=== PATIENT | female | born 1940 | race Two or more races ===

== ENCOUNTER 2019-11-07 21:42 | Emergency (ER) | payer MEDICARE, OTHER ==
[~2019-11-07] VITALS: Ht 157.5 cm; Wt 58.5 kg
--- NOTE | 2019-11-07 21:56 | NUR ---
pt bibra from home s/p glf. pt is awake & alert, speaks very little paraguayan, but is able to follow simple commands. no s/s of acute distress or sob noted. vs stable. waiting for family member to arrive to er. waiting to be seen by md at bedside. will continue to monitor pt's condition and safety.
--- NOTE | 2019-11-07 22:10 | NUR ---
pt being seen by md at bedside.
--- NOTE | 2019-11-07 22:19 | NUR ---
CXR BEING DONE AT BEDSIDE
[2019-11-07] MEDS ORDERED: HYDROMORPHONE 1 MG/1 ML DISP.SYRIN ONE (22:23)
[2019-11-07] MEDS ORDERED: ONDANSETRON 4 MG TAB.RAPDIS ONE (22:24)
[2019-11-07] MEDS ORDERED: HYDROMORPHONE 1 MG/1 ML DISP.SYRIN IM ONE (22:30)
[2019-11-07] MEDS ORDERED: ONDANSETRON 4 MG TAB.RAPDIS SL ONE (22:30)
--- NOTE | 2019-11-07 23:13 | NUR ---
Patient discharged to home in stable condition. Written and verbal after care instructions given. Patient verbalizes understanding of instruction. Patient left facility via wheelchair, accompanied by staff member, waiting for daughter to bring car out front of ER entrance. No s/s of acute distress or sob noted. VS stable. No iv on pt. pt transferred to car safely.
[2019-11-07 23:14] VITALS: BP 139/76
== END 2019-11-07 23:14 | disposition home or self-care (01) ==
LOC: ER 21:43
DX: S20.212A Contusion of left front wall of thorax, initial encounter (principal); F03.90 Unspecified dementia, unspecified severity, without behavioral disturbance, psychotic disturbance, mood disturbance, and anxiety; Z98.890 Other specified postprocedural states; W18.39XA Other fall on same level, initial encounter; Y93.89 Activity, other specified; Y92.89 Other specified places as the place of occurrence of the external cause; Y99.8 Other external cause status
CPT/HCPCS: 71045; 96372; 99283; J1170; Q0162

== ENCOUNTER 2023-04-02 20:01 | Inpatient (IN) | payer MEDICARE, OTHER ==
[~2023-04-02] VITALS: Ht 157.5 cm; Wt 57.2 kg
--- NOTE | 2023-04-02 20:30 | NUR ---
JOSE ANGELRA 89 FROM HOME FOR MORE CONFUSED THAN NORMAL FOR PAST FEW DAYS BASE LINE DEMENTIA AND CONFUSED. PATIENT IS AOX0. AWAKE, WITHDRAWS TO PAINFUL STIMULI. PATIENT LOOKS PALE. ATTACHED TO MONITOR. VITALS CHECKED.
[2023-04-02] MEDS ORDERED: IV NS 0.9% 1,000 ML BAG IV ONE ×2 (21:00→22:30)
--- NOTE | 2023-04-02 21:11 | NUR ---
XRAY DONE AT BEDSIDE
--- NOTE | 2023-04-02 21:11 | NUR ---
IV CAREN G18 INSERTED ON RIGHT UPPER ARM. BLOOD DRAWN AND SENT TO LAB
--- NOTE | 2023-04-02 21:11 | NUR ---
URINE SPECIMEN SENT TO LAB
--- NOTE | 2023-04-02 21:12 | NUR ---
DOMINICK-DAUGHTER [phone]
[2023-04-02 21:25] LABS: BASOPHILS % (AUTO) 0.4 % (0.0-2.0); HEMATOCRIT 43 % (33-45); LYMPHOCYTES # (AUTO) 1.2 K/uL (0.8-4.8); LYMPHOCYTES % (AUTO) 10.7 % (20.0-44.0); MEAN CORPUSCULAR HGB CONC 31 g/dl (31.0-36.0); MEAN CORPUSCULAR VOLUME 79 fL (82-100); MONOCYTES # (AUTO) 0.7 K/uL (0.1-1.30); MONOCYTES % (AUTO) 5.8 % (2.0-12.0); NEUTROPHILS # (AUTO) 9.6 K/uL (1.8-8.9); NEUTROPHILS % (AUTO) 83.1 % (43.0-81.0); PLATELET COUNT (AUTO) 309 K/uL (150-450); RED BLOOD CELL COUNT(AUTO) 5.37 MIL/uL (4.0-5.2); WHITE BLOOD COUNT (AUTO) 11.5 K/uL (4.3-11.0)
[2023-04-02 21:32] LABS: BILIRUBIN,URINE NEGATIVE (NEGATIVE); COLOR,URINE YELLOW (YELLOW); LEUKOCYTE ESTERASE ,URINE NEGATIVE (NEGATIVE); NITRITE, URINE NEGATIVE (NEGATIVE); PH,URINE 5.5 (5.0-8.0); PROTEIN,URINE 2+ mg/dl (NEGATIVE); UGLUCOSE 2+ mg/dL (NEGATIVE)
[2023-04-02 21:37] LABS: BACTERIA,URINE None seen /HPF (None Seen); WBC,URINE 0-2 /HPF (0-3)
[2023-04-02 21:53] LABS: BAND % (MANUAL) 1 % (0.0-5.0); LYMPHOCYTES % (MANUAL) 12 % (16-48); MONOCYTES % (MANUAL) 6 % (0-11.0); NEUTROPHILS % (MANUAL) 81 (42-76)
[2023-04-02] MEDS ORDERED: PIPERACILLIN /TAZOBACTAM 3.375 G in IV D5W 50 ML IV ONE (22:00)
[2023-04-02] MEDS ORDERED: VANCOMYCIN 1 GM in IV D5W 250 ML IV ONE (22:00)
--- NOTE | 2023-04-02 22:00 | NUR ---
CRITICAL RESULT REPORTED BY LAB RUSTY. LACTIC ACID 5.1. TROP 427 DR ANDRES MADE AWARE.
--- NOTE | 2023-04-02 22:00 | NUR ---
TROPONIN 427, MD AWARE
[2023-04-02] MEDS ORDERED: PIPERACI/TAZO 3.375GM/D5W 50ML PB IV ONE (22:24)
[2023-04-02] MEDS ORDERED: VANCOMYCIN 1 GM /D5W 250 ML PB IV ONE (22:24)
--- NOTE | 2023-04-02 22:46 | NUR ---
AFTER THOROUGH DISCUSSION OF DR MARTINEZ TO PATIENT'S DAUGHTER. DAUGHTER DECIDED TO SIGN POLST FOR DNR. DR MARTINEZ ALSO SIGNED THE DNR FORM. FORM ATTACHED TO CHART
[2023-04-02 22:59] LABS: ALANINE AMINOTRANSFERASE 38 U/L (12-78); ALBUMIN 2.9 g/dL (3.4-5.0); ALKALINE PHOSPHATASE 147 U/L (46-116); ASPARTATE AMINOTRANSFERASE 34 U/L (15-37); BILIRUBIN,DIRECT 0.1 mg/dL (0.0-0.2); BILIRUBIN,TOTAL 0.4 mg/dL (0.2-1.0); CARBON DIOXIDE 18 mmol/L (21-32); CHLORIDE 103 mmol/L (98-107); CREATININE 1.1 mg/dL (0.6-1.3); POTASSIUM 4.8 mmol/L (3.5-5.1); SODIUM SERUM 138 mmol/L (136-145); TOTAL PROTEIN, SERUM 7.5 g/dL (6.4-8.2); UREA NITROGEN, BLOOD 25 mg/dL (7-18)
[2023-04-02 23:00] LABS: ALCOHOL, BLOOD < 3 mg/dL (0-10); GLUCOSE 356 mg/dL (74-106)
--- NOTE | 2023-04-02 23:03 | NUR ---
DAUGHTER DOMINICK . CALL FOR UPDATES
[2023-04-02] MEDS ORDERED: CT SWABBABLE VALVE TRANS SET 1 EA INFUS.SET MC ONE (23:27)
[2023-04-02] MEDS ORDERED: IV NS 0.9% 250 ML IV ONE (23:27)
[2023-04-02] MEDS ORDERED: IOHEXOL-300 100 ML VIAL IV ONE (23:27)
[2023-04-03 00:03] LABS: SITE, VBG Left Radial; VBG COHb 0.3 %; VBG MetHb 0.3 %; VENT MODE, VBG Room Air
--- NOTE | 2023-04-03 00:22 | NUR ---
BROUGHT TO CT DEPT
[2023-04-03] MEDS ORDERED: IV NS 0.9% 250 ML IV ONE (00:25)
[2023-04-03] MEDS ORDERED: IOHEXOL-350 100 ML VIAL IV ONE (00:25)
[2023-04-03] MEDS ORDERED: CT SWABBABLE VALVE TRANS SET 1 EA INFUS.SET MC ONE (00:25)
--- NOTE | 2023-04-03 00:37 | NUR ---
CAME BACK FROM CT DEPT
--- NOTE | 2023-04-03 00:56 | NUR ---
CRITICAL RESULT REPORTED BY CORIE. PT LACTIC ACID IS 6.2. AWAITS MD ORDER
[2023-04-03] MEDS ORDERED: DEXTROSE 50%-WATER 50 ML DISP.SYRIN IV PRN (01:00)
[2023-04-03] MEDS ORDERED: ONDANSETRON HCL/PF 4 MG/2 ML VIAL IVP PRN (01:00)
[2023-04-03] MEDS ORDERED: ACETAMINOPHEN 650 MG/SUPP.RECT RC PRN (01:00)
[2023-04-03] MEDS ORDERED: Z GUARD REMEDY 4 OZ OINT TP PRN (01:00)
[2023-04-03] MEDS: BLOOD SUGAR DIAGNOSTIC 1 EACH STRIP IN SCH ×6 (02:00→20:41)
--- NOTE | 2023-04-03 02:04 | NUR ---
BS CHECKED 141mg/dl
--- NOTE | 2023-04-03 02:41 | NUR ---
ROOM 106
--- NOTE | 2023-04-03 03:01 | NUR ---
REPORT GIVEN TO NICOLAS CROW
--- NOTE | 2023-04-03 03:15 | NUR ---
RN ADMITTING NOTE Received patient from ER via rney accompanied by Shawna VALENZUELA and EMT Neel, pt AO x 0, in no acute distress, saturation at 92% on room air, SR on the monitor, HR is 100. IV line at RFA 22g patent flushing well, started IV fluid of NS at 100 ml/hr per MD order. Comprehensive assessment done, pressure wound noted at sacrum/coccyx and R heel. Referred for wound consult. Safety measures in place, bed is locked and at lowest position, HOB elevated, call light within reach of patient. Will monitor and carry out MD orders.
--- NOTE | 2023-04-03 03:20 | NUR ---
TRANSFERRED TO [facility] TELE VIA ACLS PROTOCOL
[2023-04-03] MEDS: IV NS 0.9% 1,000 ML IV PRN ×2 (03:46→18:35)
[2023-04-03] MEDS: ENOXAPARIN SODIUM 60 MG/0.6 ML DISP.SYRIN SQ SCH ×2 (03:56→20:07)
[2023-04-03 04:00] VITALS: BP 98/51
[2023-04-03 06:00] LABS: CALCIUM, SERUM 9.1 mg/dL (8.5-10.1); CARBON DIOXIDE 20 mmol/L (21-32); CHLORIDE 109 mmol/L (98-107); CREATININE 0.6 mg/dL (0.6-1.3); GLUCOSE 126 mg/dL (74-106); POTASSIUM 3.8 mmol/L (3.5-5.1); SODIUM SERUM 140 mmol/L (136-145); UREA NITROGEN, BLOOD 16 mg/dL (7-18)
--- NOTE | 2023-04-03 07:26 | NUR ---
RN OPENING NOTE Received report from TRISTIN VALENZUELA, patient in bed sleeping, easily to aroused, pt AO x 0, in no acute distress, on 2lpm 02 via NC,tolerating well. SR on the monitor, HR is 98-99. IV line at RFA 22g patent flushing well, on IV fluid of NS at 100 ml/hr. Safety measures in place, bed is locked and at lowest position, HOB elevated, call light within reach of patient. Plan of care continue.
[2023-04-03 08:00] VITALS: BP 96/58
[2023-04-03] MEDS: PANTOPRAZOLE 40 MG VIAL IV SCH (08:06)
[2023-04-03] MEDS: CEFEPIME 2 GM in IV D5W 100 ML IV SCH ×2 (08:16→20:07)
[2023-04-03] MEDS ORDERED: CEFEPIME 1 GM in IV D5W 50 ML IV SCH (09:00)
[2023-04-03] MEDS ORDERED: ASPIRIN 81 MG TAB.CHEW PO SCH (09:00)
[2023-04-03] MEDS ORDERED: RISP0.2515 PO (09:37)
[2023-04-03] MEDS ORDERED: LORA-258 PO (09:37)
[2023-04-03] MEDS ORDERED: CHOL100043 PO (09:37)
[2023-04-03] MEDS ORDERED: DORZ10DR11 LEFTEYE (09:37)
[2023-04-03] MEDS ORDERED: CALC500T53 PO (09:37)
[2023-04-03] MEDS ORDERED: DICL100G34 TD (09:37)
[2023-04-03] MEDS ORDERED: MYRBETRIQ PO (09:37)
[2023-04-03] MEDS ORDERED: LATA2.5D15 EACHEYE (09:37)
--- NOTE | 2023-04-03 10:45 | NUR ---
RN OPENING NOTE RECEIVED REPORT FROM FELA MAYERS,NICOLAS, PATIENT IN BED, ASLEEP, NO ACUTE DISTRESS, O2 SAT 96% ON 2L VIA NC, IV ACCESS RFA 22g PATENT, FLUSHING WELL, RUNNING IV NS at 100 ml/hr. PT IS NPO, D/T FAILED SWAL EVAL. SAFETY MEASURES IMPLEMENTED, BED LOCKED AND IN LOWEST POSITION, SIDE RAILS UP, CALL LITE WITHIN REACH, WILL CONTINUE TO MONITOR.
[2023-04-03 11:06] LABS: CALCIUM, SERUM 8.9 mg/dL (8.5-10.1); CREATININE 0.7 mg/dL (0.6-1.3)
--- NOTE | 2023-04-03 11:11 | NUR ---
GAVE REPORT TO KONSTANTIN Dexter RN FOR KRUPA.
--- NOTE | 2023-04-03 11:16 | NUR ---
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 DR VALLE AND DR MARIE CALLED FOR SURGICAL AND DPM CONSULTS. DR MARIE EXAMINED PT. DISCUSSED SKIN PROTECTION WITH NURSING STAFF. MD IN AGREEMENT WITH PLAN OF CARE. FIRST STEP LOW AIRLOSS MATTRESS IS ON ORDER.
[2023-04-03 11:33] LABS: BASOPHILS % (AUTO) 0.4 % (0.0-2.0); EOSINOPHILS % (AUTO) 0.1 % (0.0-6.0); HEMATOCRIT 36 % (33-45); HEMOGLOBIN 11.2 g/dL (11.5-14.8); LYMPHOCYTES # (AUTO) 2.2 K/uL (0.8-4.8); LYMPHOCYTES % (AUTO) 27.1 % (20.0-44.0); MEAN CORPUSCULAR HGB CONC 31 g/dl (31.0-36.0); MEAN CORPUSCULAR VOLUME 79 fL (82-100); MONOCYTES # (AUTO) 0.9 K/uL (0.1-1.30); MONOCYTES % (AUTO) 10.4 % (2.0-12.0); NEUTROPHILS # (AUTO) 5.1 K/uL (1.8-8.9); PLATELET COUNT (AUTO) 242 K/uL (150-450); RED BLOOD CELL COUNT(AUTO) 4.59 MIL/uL (4.0-5.2); WHITE BLOOD COUNT (AUTO) 8.2 K/uL (4.3-11.0)
[2023-04-03 12:00] VITALS: BP 101/60
[2023-04-03] MEDS: THERAHONEY GEL 1.5 OZ TUBE TP SCH (12:17)
[2023-04-03 16:00] VITALS: BP 107/60
--- NOTE | 2023-04-03 19:09 | NUR ---
RN OPENING NOTE PATIENT IN BED, ASLEEP, NO ACUTE DISTRESS, O2 SAT 96% ON 2L VIA NC, IV ACCESS RFA 22g PATENT, FLUSHING WELL, RUNNING IV NS at 100 ml/hr. PT IS NPO, D/T FAILED SWAL EVAL. WOUND CARE PROVIDED, AIR MATTRESS IN USE, SAFETY MEASURES IMPLEMENTED, BED LOCKED AND IN LOWEST POSITION, SIDE RAILS UP, CALL LITE WITHIN REACH, WILL CONTINUE TO MONITOR.
--- NOTE | 2023-04-03 19:30 | NUR ---
RN OPENING NOTE RECEIVED PTS IN BED ASLEEP, NO SOB NO ACUTE DISTRESS,ON O2 2 LITERS VIA NC O2 SAT 96%, IV ACCESS RFA 22g PATENT, FLUSHING WELL, RUNNING IV NS at 100 ml/hr. PT IS NPO, STATUS , DUE MEDS GIVEN ORDERED NO ASE NOTED ,V/S STABLE AFEBRILE .ON TELE SR -ST ON THE MONITOR , SAFETY MEASURES IMPLEMENTED, BED LOCKED AND IN LOWEST POSITION, SIDE RAILS UP, CALL LITE WITHIN REACH, WILL CONTINUE TO MONITOR.
[2023-04-03] MEDS: INSULIN REGULAR, HUMAN 100 UNIT/ML 3 ML VIAL SQ PRN (20:43)
--- NOTE | 2023-04-03 20:46 | NUR ---
LABORATORY GENETICIST NOTES BLOOD SUGAR AT 9PM IS 162MG/DL 3 UNITS OF REGULAR INSULIN GIVEN PER SLIDING SCALE PTS ON IV FLUIDS
[2023-04-03 20:53] VITALS: BP 127/68
--- NOTE | 2023-04-03 23:40 | NUR ---
RN NOTE RECEIVED PATIENT FROM NICOLAS LAU. PATIENT RESTING COMFORTABLY IN BED. WILL CONTINUE TO MONITOR PATIENT.
[2023-04-04] VITALS: BP 122/69
--- NOTE | 2023-04-04 00:02 | NUR ---
director telemetry notes Report given to Yuri Ruiz for continuity of care.
[2023-04-04] MEDS: BLOOD SUGAR DIAGNOSTIC 1 EACH STRIP IN SCH ×6 (00:17→21:49)
[2023-04-04] MEDS: INSULIN REGULAR, HUMAN 100 UNIT/ML 3 ML VIAL SQ PRN ×5 (00:17→21:54)
[2023-04-04 04:55] VITALS: BP 117/70
[2023-04-04] MEDS: IV NS 0.9% 1,000 ML IV PRN ×2 (05:26→16:05)
[2023-04-04 06:24] LABS: BASOPHILS # (AUTO) 0.1 K/uL (0.0-0.2); BASOPHILS % (AUTO) 1.1 % (0.0-2.0); EOSINOPHILS % (AUTO) 1.3 % (0.0-6.0); HEMATOCRIT 32 % (33-45); LYMPHOCYTES % (AUTO) 26.9 % (20.0-44.0); MEAN CORPUSCULAR HGB CONC 32 g/dl (31.0-36.0); MEAN CORPUSCULAR VOLUME 77 fL (82-100); MONOCYTES # (AUTO) 0.6 K/uL (0.1-1.30); MONOCYTES % (AUTO) 8.4 % (2.0-12.0); NEUTROPHILS # (AUTO) 4.6 K/uL (1.8-8.9); NEUTROPHILS % (AUTO) 62.3 % (43.0-81.0); PLATELET COUNT (AUTO) 224 K/uL (150-450); RED BLOOD CELL COUNT(AUTO) 4.09 MIL/uL (4.0-5.2); WHITE BLOOD COUNT (AUTO) 7.4 K/uL (4.3-11.0)
--- NOTE | 2023-04-04 06:34 | NUR ---
RN CLOSING NOTE PATIENT ASLEEP IN BED. NON-VERBAL. NO S/S OF DISTRESS, BREATHING WITHOUT DIFFICULTY ON 2L NC. RFA #20 INTACT AND PATENT W/ NS 100ML/HR. TELE SR 94. SAFETY MEASURES IN PLACE: BED LOCKED AND AT LOWEST POSITION, RAILS UP X2, CALL CANO WITHIN REACH. WILL ENDORSE TO NEXT SHIFT FOR KRUPA.
[2023-04-04 06:37] LABS: MAGNESIUM 1.9 mg/dL (1.8-2.4); PHOSPHORUS 2.6 mg/dL (2.5-4.9)
--- NOTE | 2023-04-04 07:00 | NUR ---
DRAUGHTSMAN OPENING NOTES: RECEIVED PT IN BED ASLEEP, EASILY AROUSED WITH STIMULI. PT OPENED HER EYES WHEN CALLED BY HER NAME.NO SOB OR CARDIAC DISTRESS NOTED. ON O2 INHALATION @2LPM VIA NC AND SATURATION INS 98-100%. ON ARC CUTTER PLASMA ARC WITH CURRENT READING OF SINUS RHYTHM @77BPM. IV ACCESS ON RFA GAUGE 20 PATENT, INTAACT AND INFUSING NS 1L @ 100ML/HR. SAFETY MEASURES MAINTAINED, BED LOCKED AND IN LOWEST POSITION, SIDERAILS UP X 3. MAINTAINED HOB ON SEMI TO HIGH FOWLERS POSITION. WILL MONITOR PT ACCORDINGLY.
[2023-04-04 08:00] VITALS: BP 122/62
[2023-04-04] MEDS: CEFEPIME 2 GM in IV D5W 100 ML IV SCH ×2 (08:11→21:41)
[2023-04-04] MEDS: PANTOPRAZOLE 40 MG VIAL IV SCH (08:11)
[2023-04-04] MEDS: THERAHONEY GEL 1.5 OZ TUBE TP SCH ×2 (08:12→16:54)
[2023-04-04] MEDS: ENOXAPARIN SODIUM 60 MG/0.6 ML DISP.SYRIN SQ SCH ×2 (08:16→21:53)
[2023-04-04 08:59] LABS: CREATININE 0.6 mg/dL (0.6-1.3); POTASSIUM 3.8 mmol/L (3.5-5.1)
[2023-04-04 09:14] LABS: THYROID STIMULATING HORMONE 4.753 uIU/mL (0.358-3.74)
--- NOTE | 2023-04-04 11:14 | NUR ---
RN NOTES: PATIENT PASSED THE BEDSIDE NURSING SWALLOW EVAL, PT IS MORE AWAKE AND DAUGHTER AT BED SIDE. INFORMED DR MARTIN AND ORDERED CHANGE DIET TO PIERO GABRIEL TELE. ORDERS NOTED AND CARRIED OUT.
--- NOTE | 2023-04-04 11:30 | NUR ---
RN NOTES: SEEN BY DR WEEMS, WOUND EVAL DONE. WOUND CARE TREATMENT DONE.FAMILY AT BEDSIDE. PT HAD BM AND BED BATH DONE.
[2023-04-04 12:00] VITALS: BP 122/62
[2023-04-04 16:00] VITALS: BP 117/71
--- NOTE | 2023-04-04 18:00 | NUR ---
RN NOTES: PATIENT ABLE TO EAT DINNER 75% PUREED DIET C/O HER DAUGHTER.
--- NOTE | 2023-04-04 18:45 | NUR ---
CHEMICAL MAKER CLOSING NOTES: PATIENT ASLEEP EASILY AROUSED WITH STIMULI( CALLING HER BY HER NAME) NO SOB OR CARDIAC DISTRESS NOTED. ON O2 INHALATION AT 2LPM VIA NC AND TOLERATING WELL SATURATING 96%. PER DAUGHTER PATIENT IS MORE AWAKE/RESPONSIVE TODAY. IV ACCESS ON RFA GAUGE 20 PATENT, INTACT AND INFUSING NS1L @ 100ML/HR.SAFETY MEASURES MAINTAINED: BED LOCKED AND IN LOWEST POSITION, SIDE RAILS UP X 3. CALL LIGHT AND BED SIDE TABLE IN EASY REACH. WILL ENDORSE TO MANAGER PHARMACY NURSE FOR CONTINUITY OF CARE.
--- NOTE | 2023-04-04 19:00 | NUR ---
log deck tender opening note PT resting in bed, awake, A&O x1, breathing even and unlabored, on o2 via NC, peripheral IV flushing well, all safety measures in place, will continue to monitor
[2023-04-04 20:00] VITALS: BP 120/54
--- NOTE | 2023-04-04 21:54 | NUR ---
IV ABX ADMINISTRATION IV peripheral line RFA intact. Maxipime IV given.
[2023-04-05] VITALS: BP 120/54
[2023-04-05] MEDS: INSULIN REGULAR, HUMAN 100 UNIT/ML 3 ML VIAL SQ PRN ×2 (01:26→05:39)
[2023-04-05] MEDS: BLOOD SUGAR DIAGNOSTIC 1 EACH STRIP IN SCH ×4 (01:26→12:41)
[2023-04-05] MEDS: IV NS 0.9% 1,000 ML IV PRN (02:46)
[2023-04-05 04:00] VITALS: BP 130/68
--- NOTE | 2023-04-05 06:23 | NUR ---
SUPERVISOR VACUUM METALIZING opening note PT resting in bed, asleep, easy to arouse, breathing even and unlabored Addendum: 04/05/23 at 06 by ROBERTO HANNA LVN cont. note. on o2 via NC, RFA 20G flushing well, NS 100cc/ hr tolerating well, 0 s/s of pain noted, skin warm and dry to touch, NAD noted at this time, all safety measures are in place, call light with in reach, will continue to monitor Addendum: 04/05/23 at 06 by ROBERTO HANNA LVN addendum time- [id number] Addendum: 04/05/23 at 0629 by ROBERTO HANNA LVN closing note
[2023-04-05 06:27] LABS: BASOPHILS # (AUTO) 0.1 K/uL (0.0-0.2); BASOPHILS % (AUTO) 1.4 % (0.0-2.0); EOSINOPHILS % (AUTO) 2.9 % (0.0-6.0); HEMATOCRIT 30 % (33-45); HEMOGLOBIN 9.4 g/dL (11.5-14.8); LYMPHOCYTES # (AUTO) 1.6 K/uL (0.8-4.8); LYMPHOCYTES % (AUTO) 27.8 % (20.0-44.0); MEAN CORPUSCULAR HGB CONC 32 g/dl (31.0-36.0); MEAN CORPUSCULAR VOLUME 78 fL (82-100); MONOCYTES # (AUTO) 0.5 K/uL (0.1-1.30); MONOCYTES % (AUTO) 7.9 % (2.0-12.0); NEUTROPHILS # (AUTO) 3.5 K/uL (1.8-8.9); PLATELET COUNT (AUTO) 234 K/uL (150-450); RED BLOOD CELL COUNT(AUTO) 3.81 MIL/uL (4.0-5.2); WHITE BLOOD COUNT (AUTO) 5.8 K/uL (4.3-11.0)
[2023-04-05 06:42] LABS: CALCIUM, SERUM 8.5 mg/dL (8.5-10.1); CARBON DIOXIDE 21 mmol/L (21-32); CHLORIDE 110 mmol/L (98-107); CREATININE 0.5 mg/dL (0.6-1.3); GLUCOSE 100 mg/dL (74-106); MAGNESIUM 1.8 mg/dL (1.8-2.4); PHOSPHORUS 2.6 mg/dL (2.5-4.9); SODIUM SERUM 140 mmol/L (136-145); UREA NITROGEN, BLOOD 4 mg/dL (7-18)
--- NOTE | 2023-04-05 07:42 | NUR ---
RN OPENING NOTES; RECEIVED PT IN BED ASLEEP, EASILY ROUSED. PT OPENED HER EYES WHEN CALLED BY ON O2 INHALATION @2LPM VIA NC AND SATURATION INS 98-100%. ON [employer] SYSTEMS ENGINEER WITH CURRENT READING OF SINUS RHYTHM @77BPM. IV ACCESS ON RFA GAUGE 20 PATENT, INTAACT AND INFUSING NS 1L @ 100ML/HR. SAFETY MEASURES MAINTAINED, BED LOCKED AND IN LOWEST POSITION, SIDERAILS UP X 3. MAINTAINED HOB ON SEMI TO HIGH FOWLERS POSITION. WILL MONITOR PT ACCORDINGLY. Addendum: 04/05/23 at 0744 by JANET GREY RN CORRECTION: PT IS NOT ON TELE MONITOR, TRANSFERRED TO MED SURG
[2023-04-05 08:00] VITALS: BP 138/68
[2023-04-05] MEDS: PANTOPRAZOLE 40 MG VIAL IV SCH (08:49)
[2023-04-05] MEDS: ENOXAPARIN SODIUM 60 MG/0.6 ML DISP.SYRIN SQ SCH (08:52)
[2023-04-05] MEDS: CEFEPIME 2 GM in IV D5W 100 ML IV SCH (08:55)
[2023-04-05] MEDS: THERAHONEY GEL 1.5 OZ TUBE TP SCH ×2 (09:01→09:02)
[2023-04-05] MEDS ORDERED: APIX5TAB PO (09:57)
[2023-04-05] MEDS ORDERED: LEVO500T90 PO (09:57)
[2023-04-05] MEDS ORDERED: POTASSIUM CHLORIDE 20 MEQ TAB.PRT.SR PO SCH (10:00)
[2023-04-05] MEDS: POTASSIUM CHLORIDE 20 MEQ POWDER PACKET PO SCH ×3 (10:46→13:42)
--- NOTE | 2023-04-05 15:00 | NUR ---
RN DC NOTES; PT DC TO HOME WITH HOSPICE PER MD. VITALS WNL, STABLE ON RA, AFEBRILE, WOUND CARE DONE, SKIN PHOTO TAKEN. DC INSTRUCTIONS, BELONGINGS AND MEDICAL RECORDS DISCUSSED WITH PT'S DAUGHTER, RUDDY, SIGNED DOCUMENTS, MED RECORD PACKET GIVEN TO RUDDY. IV ACCESS AND ID BAND REMOVED, REPORT GIVEN TO EMT. PT LEFT UNIT VIA GURNEY, TRANSPORTATION IS [facility], UNIT# [id number].
[2023-04-05] MEDS ORDERED: APIXABAN 5 MG TABLET PO SCH (17:00)
[2023-04-06] MEDS ORDERED: PANTOPRAZOLE 40 MG TABLET.DR PO SCH (09:00)
== END 2023-04-05 15:08 | disposition hospice, home (50) | DRG 871 ==
LOC: ER 20:11 → TELE1 04-03 02:54 → TELE-TD 04-03 07:45 → TELE1 04-03 11:37 → MEDSG1 04-04 10:57
PROVIDERS: ADMIT Nurse Practitioner Acute Care; ATTEND Nurse Practitioner Acute Care
DX: A41.9 Sepsis, unspecified organism (principal); E11.10 Type 2 diabetes mellitus with ketoacidosis without coma; J69.0 Pneumonitis due to inhalation of food and vomit; L89.613 Pressure ulcer of right heel, stage 3; G92.8 Other toxic encephalopathy; J96.01 Acute respiratory failure with hypoxia; I21.A1 Myocardial infarction type 2; I26.94 Multiple subsegmental thrombotic pulmonary emboli without acute cor pulmonale; N39.0 Urinary tract infection, site not specified; E86.0 Dehydration; Z66 Do not resuscitate; L89.621 Pressure ulcer of left heel, stage 1; Z74.01 Bed confinement status; F03.90 Unspecified dementia, unspecified severity, without behavioral disturbance, psychotic disturbance, mood disturbance, and anxiety; Z91.81 History of falling; Z20.822 Contact with and (suspected) exposure to COVID-19; F09 Unspecified mental disorder due to known physiological condition; L89.156 Pressure-induced deep tissue damage of sacral region
CPT/HCPCS: 36415; 36600; 70450-TC; 71045-TC; 80048-TC; 80061-TC; 80076-TC; 81001; 82803-TC; 82962-TC; 83605-TC; 83735-TC; 84100-TC; 84134-TC; 84443-TC; 84484-TC; 85025-TC; 87040-TC; 87081-TC; 87086-TC; 92526; 92611-TC; 93307-TC; 93970-TC; A4223; C9113; C9803; G0378; G0480; J0692; J1650; J1815; J2543; J3370; J7030; J7050; J7060; Q9967